=== PATIENT | male | born 1990 | race Caucasian/White ===

== ENCOUNTER 2016-08-30 07:04 | Emergency (ER) | payer BC ==
[~2016-08-30] VITALS: Ht 182.9 cm; Wt 167.0 kg
[~2016-08-30 07:04] MED LIST: ALBU1AER9 INH; CIPR-255 PO; OXYC-57 PO; TAMS0.4C38 PO
[2016-08-30 07:07] VITALS: TEMP 36.6; Ht 182.9 cm; Wt 167.0 kg
[2016-08-30] MEDS ORDERED: SODIUM CHLORIDE 0.9% 1000ML 1,000 ML IV STA (07:20)
[2016-08-30] MEDS ORDERED: ONDANSETRON INJ 2 MG/ML 2 ML VIAL IV STA (07:20)
[2016-08-30] MEDS ORDERED: MoRPHine SULFATE 10 MG/ML CARP/VIAL IV STA (07:20)
[2016-08-30 07:57] LABS: URINE APPEARANCE TURBID (CLEAR); URINE COLOR DK YELLOW; URINE EPITHELIAL CELL AUTO 0-5 /lpf (0-5); URINE NITRITE NEG (NEG); URINE PH 5.5 (4.5-7.5); URINE SPECIFIC GRAVITY 1.026 (1.000-1.030); UROBILINOGEN NEG (NEG)
[2016-08-30 07:58] LABS: MANUAL MICROSCOPIC REQUIRED? NO; REVIEW REQ? NO
[2016-08-30 07:59] LABS: URINE BILIRUBIN NEG (NEG)
[2016-08-30 08:00] LABS: BASO % 0.2 %; BASO ABS # 0.02 K/uL (0-0.2); COMPLETE YES; EOS % 1.8 %; HEMATOCRIT 46.1 % (42-52); IG% 0.4 %; LYMPH % 23.7 %; LYMPH ABS # 2.47 K/uL (1.2-3.4); MEAN CORPUSCULAR HEMOGLOBIN 30.2 pg (25-34); MEAN CORPUSCULAR HGB CONC 34.7 g/dl (32-36); MEAN PLATELET VOLUME 10.5 fL (7.4-10.4); MONO % 6.9 %; PLATELET COUNT 272 K/uL (130-400); WHITE BLOOD COUNT 10.42 K/uL (4.8-10.8)
[2016-08-30 08:18] LABS: BUN/CREATININE RATIO 9.1 (10-20); CALCIUM 8.5 mg/dl (8.5-10.1); CREATININE 1.2 mg/dl (0.60-1.40); POTASSIUM 3.5 mmol/L (3.5-5.1)
--- NOTE | 2016-08-30 08:19 | DIAGNOSTIC IMAGING REPORT ---
ABDOMEN AND PELVIS CT WITHOUT CONTRAST CT DOSE: 2086.83 mGy.cm HISTORY: EVALUATE FLANK PAIN/HEMATURIA TECHNIQUE: Multiaxial CT images of the abdomen and pelvis were performed without the use of intravenous and oral contrast according to the standard department stone protocol. COMPARISON STUDY: Renal ultrasound 08/22/2015. FINDINGS: The lung bases are clear. No pneumoperitoneum. No pneumatosis. No fractures within the visualized osseous structures. The unenhanced liver, spleen, gallbladder, pancreas, and adrenal glands are unremarkable. Bladder is decompressed. No renal stones identified. There is a duplicated left renal collecting system. Mild fullness within the upper pole without shelia hydronephrosis.. Questionable punctate density near the location where the proximal left ureters join on image 181 of [id number] which could represent a 2 mm stone and may account for the fullness within the upper pole. Suboptimal evaluation for bowel pathology due to the lack of intravenous and oral contrast. However, there is no definite bowel wall thickening or obstruction. A few sigmoid diverticula. Normal appendix. IMPRESSION: Possible punctate stone at the left ureteropelvic junction where the proximal left ureters join. This may account for the mild fullness within the upper pole of the left renal collecting system. Electronically signed by: Salvador Arias M.D. 08/30/2016 8:17 AM Dictated Date/Time: 08/30/2016 8:05 AM
[2016-08-30 08:34] VITALS: BP 130/65; PULSE 64; O2SAT 96
[2016-08-30] MEDS ORDERED: OXYC-57 PO (08:41)
--- NOTE | 2016-08-30 16:40 | EMERGENCY ROOM VISIT NOTE ---
ED Visit Note First contact with patient: 07:10 Chief Complaint: Left sided back pain. History of Present Illness: Mr. Ashraf is a 25 year-old white male who ambulates into the ED accompanied by female friend complaining of left sided lower back pain. Historically patient reports approximately one year ago he had a ureter calculus which required cystoscopy, laser lithotripsy, stone extraction and stent placement for a right sided calculus. He reports there is no postsurgical complications. Patient reports a acute onset of left lower back pain approximately 3-4 days ago. He reports this pain is similar to his previous right-sided ureter calculus. He reports initially the pain had been mild to moderate and then this morning approximately 3 hours ago the pain became severe. He describes the pain as a deep muscle discomfort. He rates his discomfort 9/10. His pain radiates around the abdomen and into the left lower quadrant and testicle. He has not identified any aggravating or alleviating factors related to the pain. He has not taken any medications for pain prior to arrival at the hospital. Associated with his pain he reports he has been having hematuria and nausea/ vomiting. Patient denies fevers, chills, sweats, skin eruptions, skin color changes, upper respiratory tract symptoms, shortness of breath, chest pain, diarrhea, constipation, rectal bleeding, black/tarry stools, urinary symptoms, hematuria. Review of Systems: As noted above in history of present illness. All body systems were reviewed and found to be negative as noted above. Past Medical History: As previously noted and hypertension, unspecified skin disorder and status post tonsillectomy. Current Medications: Patient denies. Allergies to Medications: Patient denies. Social History: Patient is currently employed; he feels safe in his home environment; he admits to tobacco use and denies alcohol use. Physical Examination: Vital Signs: Date Time Temp Pulse Resp B/P (MAP) Pulse Ox O2 Delivery O2 Flow Rate FiO2 08/30/16 08:34 64 18 130/65 96 Room Air 08/30/16 07:07 36.6 55 20 157/88 99 Room Air GENERAL: 25-year-old male in mild to moderate distress due to pain, nontoxic- appearing, afebrile and hemodynamically stable. NEUROLOGICAL: Awake, alert and oriented to person, place and time. Answering questions appropriately and following commands. Normal gait. Good hand eye coordination. SKIN: Warm, dry and pink. No soft tissue eruptions or trauma noted. HEENT: Atraumatic and normocephalic. PERRLA. Sclera white and conjunctiva pink. Oral cavity moist and pink. Pharynx is nonerythematous or edematous. Speech normal. No lymphadenopathy. Trachea midline. No jugular venous distention. BACK: No tenderness over the bony spine. No CVA tenderness. THORAX: Lungs sounds are clear to auscultation and equal bilaterally with symmetrical chest wall. No wheezing, rales or rhonchi. No crepitus, tenderness , subcutaneous air or deformities noted. HEART: Regular rate and rhythm. No gallops, rubs or murmurs are appreciated. ABDOMEN: Obese and soft with mild left lower quadrant abdominal pain. Positive bowel sounds in all quadrants. No guarding, rigidity or organomegaly. EXTREMITIES: Moves all extremities well on command and with purpose. All distal neurovascular statuses are intact and equal bilaterally. ED Course: Patient is assessed as noted above. Patient's medication list was reviewed. Laboratory Testing: Test 08/30/16 07:30 Range/Units White Blood Count 10.42 4.8-10.8 K/uL Red Blood Count 5.30 4.7-6.1 M/uL Hemoglobin 16.0 14.0-18.0 g/dL Hematocrit 46.1 42-52 % Mean Corpuscular Volume 87.0 80-100 fL Mean Corpuscular Hemoglobin 30.2 25-34 pg Mean Corpuscular Hemoglobin Concent 34.7 32-36 g/dl Platelet Count 272 130-400 K/uL Mean Platelet Volume 10.5 7.4-10.4 fL Neutrophils (%) (Auto) 67.0 % Lymphocytes (%) (Auto) 23.7 % Monocytes (%) (Auto) 6.9 % Eosinophils (%) (Auto) 1.8 % Basophils (%) (Auto) 0.2 % Neutrophils # (Auto) 6.98 1.4-6.5 K/uL Lymphocytes # (Auto) 2.47 1.2-3.4 K/uL Monocytes # (Auto) 0.72 0.11-0.59 K/uL Eosinophils # (Auto) 0.19 0-0.5 K/uL Basophils # (Auto) 0.02 0-0.2 K/uL RDW Standard Deviation 45.8 36.4-46.3 fL RDW Coefficient of Variation 14.4 11.5-14.5 % Immature Granulocyte % (Auto) 0.4 % Immature Granulocyte # (Auto) 0.04 0.00-0.02 K/uL Urine Color DK YELLOW Urine Appearance TURBID CLEAR Urine pH 5.5 4.5-7.[address] 1.026 1.000-1.030 Urine Protein TRACE NEG Urine Glucose (UA) NEG NEG Urine Ketones TRACE NEG Urine Occult Blood 3+ NEG Urine Nitrite NEG NEG Urine Bilirubin NEG NEG Urine Urobilinogen NEG NEG Urine Leukocyte Esterase TRACE NEG Urine WBC (Auto) 1-5 0-5 /hpf Urine RBC (Auto) >30 0-4 /hpf Urine Hyaline Casts (Auto) 1-5 0-5 /lpf Urine Epithelial Cells (Auto) 0-5 0-5 /lpf Urine Bacteria (Auto) NEG NEG Sodium Level 141 136-145 mmol/L Potassium Level 3.5 3.5-5.1 mmol/L Chloride Level 110 98-107 mmol/L Carbon Dioxide Level 21 21-32 mmol/L Anion Gap 10.0 3-11 mmol/L Blood Urea Nitrogen 11 7-18 mg/dl Creatinine 1.20 0.60-1.40 mg/dl Est Creatinine Clear Calc Drug Dose 149.6 ml/min Estimated GFR () 96.1 Estimated GFR (Non- 83.0 BUN/Creatinine Ratio 9.1 10-20 Random Glucose 100 70-99 mg/dl Calcium Level 8.5 8.5-10.1 mg/dl Total Bilirubin 0.4 0.2-1 mg/dl Direct Bilirubin 0.1 0-0.2 mg/dl Aspartate Amino Transf (AST/SGOT) 12 15-37 U/L Alanine Aminotransferase (ALT/SGPT) 29 12-78 U/L Alkaline Phosphatase 81 45-117 U/L Total Protein 7.5 6.4-8.2 gm/dl Albumin 3.8 3.4-5.0 gm/dl Lipase 79 73-393 U/L Noncontrast Abdominal/Pelvic CT: Was reviewed by myself and read by the radiologist showing a possible punctate calculus at the left UPJ where the proximal left ureters join and I mild fullness within the upper pole of the left renal collection system Patient was hydrated with normal saline and he initially received 6 mg of morphine IV and 4 mg of Zofran IV. Patient was reassessed multiple times during his stay in the emergency department. Patient's case was reviewed with Dr. Tinsley; we agreed on diagnostic approach, treatment, disposition and plan. Patient was educated about today's findings and instructed on his treatment plan ; he verbalizes understanding and agreement with this plan. Clinical Impression: Left ureter calculus. Decision-Making: Initially my differential diagnosis I considered ureter calculus, pyelonephritis, musculoskeletal injury, diverticulitis, bowel obstruction and other causes. Disposition: Patient discharged home in stable condition accompanied by his girlfriend; prior to departure he was reassessed and subjectively reported he was pain and symptom-free. Plan: Use 600 mg of ibuprofen every 6 hours as needed for pain; take with food and stop for stomach pain or indigestion. 3 hours after ibuprofen use rate your pain: for pain rated 1-5 use 650 mg of acetaminophen for pain rated 6-10 use one Percocet tablet Stay well-hydrated with increased clear fluids. Strain all urine and collect all stones for analysis. Follow-up with your urologist, Dr. Cleveland, for specialty care and treatment. Return to the ED for worsening/uncontrolled pains, fevers, worsening nausea/ vomiting, urinary burning or any new/concerning symptoms.
[2016-09-08] MEDS ORDERED: ONDA4TAB10 SL (18:14)
== END 2016-08-30 08:53 | disposition home or self-care (01) ==
LOC: C.EDB 07:05
DX: N20.1 Calculus of ureter (principal); I10 Essential (primary) hypertension; Z72.0 Tobacco use

== ENCOUNTER 2016-09-06 17:07 | Inpatient (IN) | payer BC ==
[~2016-09-06] VITALS: Ht 182.9 cm; Wt 166.6 kg
[~2016-09-06 17:07] MED LIST changes: -ALBU1AER9 INH; -CIPR-255 PO; -TAMS0.4C38 PO
[2016-09-06] MEDS ORDERED: SODIUM CHLORIDE 0.9% 1000ML 1,000 ML IV STA (17:16)
[2016-09-06 17:42] LABS: URINE APPEARANCE CLEAR (CLEAR); URINE BILIRUBIN NEG (NEG); URINE COLOR YELLOW; URINE NITRITE NEG (NEG); URINE PH >= 9.0 (4.5-7.5); URINE SPECIFIC GRAVITY 1.019 (1.000-1.030); UROBILINOGEN NEG (NEG); ZZUR CULT IF INDIC CLEAN CATCH NO
[2016-09-06 17:44] LABS: BASO % 0.1 %; BASO ABS # 0.01 K/uL (0-0.2); COMPLETE YES; EOS % 0.2 %; HEMATOCRIT 43.3 % (42-52); IG% 0.2 %; LYMPH % 16.6 %; LYMPH ABS # 2.03 K/uL (1.2-3.4); MEAN CELL VOLUME 86.8 fL (80-100); MEAN CORPUSCULAR HEMOGLOBIN 30.3 pg (25-34); MEAN CORPUSCULAR HGB CONC 34.9 g/dl (32-36); MEAN PLATELET VOLUME 10.1 fL (7.4-10.4); MONO % 6.2 %; NEUT % 76.7 %; PLATELET COUNT 234 K/uL (130-400); RED BLOOD COUNT 4.99 M/uL (4.7-6.1); WHITE BLOOD COUNT 12.24 K/uL (4.8-10.8)
[2016-09-06 17:45] LABS: MANUAL MICROSCOPIC REQUIRED? NO; REVIEW REQ? NO; SULFASALICYLIC ACID NEG (NEG)
[2016-09-06] MEDS ORDERED: TAMS0.4C38 PO (17:46)
[2016-09-06] MEDS ORDERED: ABL/15 PO (17:46)
[2016-09-06] MEDS ORDERED: VNTHFA/IN INH (17:48)
[2016-09-06] MEDS ORDERED: MoRPHine SULFATE 4 MG/ML 1 ML CARP\\VIAL IV STA (17:49)
[2016-09-06] MEDS ORDERED: ONDANSETRON INJ 2 MG/ML 2 ML VIAL IV STA (17:49)
[2016-09-06 18:09] LABS: BUN/CREATININE RATIO 10.5 (10-20); CALCIUM 9.1 mg/dl (8.5-10.1); CREATININE 1.1 mg/dl (0.60-1.40); POTASSIUM 3.4 mmol/L (3.5-5.1)
--- NOTE | 2016-09-06 18:28 | DIAGNOSTIC IMAGING REPORT ---
Renal ultrasound RETROPERITONEAL COMPLETE CLINICAL HISTORY: Left flank pain, decreased urine output. Flank pain TECHNIQUE: Ultrasound COMPARISON STUDY: None FINDINGS: Right kidney measures 11.1 cm. Left measures 12.8 cm. Echogenicity is unremarkable. No evidence for hydronephrosis. IMPRESSION: Normal study. No evidence for hydronephrosis. Electronically signed by: Wade Hathaway M.D. 09/06/2016 6:27 PM Dictated Date/Time: 09/06/2016 6:26 PM
[2016-09-06] MEDS ORDERED: ACETAMINOPHEN 325 MG TAB PO PRN (19:45)
[2016-09-06] MEDS ORDERED: ALUMINUM/MAGNESIUM/SIMETH (MAALOX MAX) 30 ML UDC PO PRN (19:45)
[2016-09-06] MEDS ORDERED: ONDANSETRON INJ 2 MG/ML 2 ML VIAL IV PRN (19:45)
[2016-09-06] MEDS ORDERED: POLYETHYLENE (MIRALAX) 17 GM PACK PO PRN (19:45)
[2016-09-06] MEDS ORDERED: MAGNESIUM HYDROXIDE SUSP 30 ML UDC PO PRN (19:45)
--- NOTE | 2016-09-06 19:57 | History and Physical ---
History & Physical Date & Time of Service: Sep 06, 2016 at 19:56 Chief Complaint: Kidney Stone Primary Care Physician: Juaquin Souza History of Present Illness Source: patient 25 y/o M Hx obstructive renal calculi and previous ureteral stent placement. Pt presented with back/flank pain on 08/[address] abdomen which showed a punctate stone at the left ureteropelvic junction. It was thought that this would pass and he was discharged to follow-up with his urologist. His symptoms have persisted, worsened over the course of the day and were accompanied by nausea and vomiting. He denies fevers or rigors. Past Medical/Surgical History 1) Obstructive ureteral calculus requiring stent placement 08/28 2) Obesity Family History Cancer Father with DM , CAD/OH - mother denies medical issues Social History Smoking Status: Current Every Day Smoker Marital Status: single Housing status: lives alone Occupational Status: employed Allergies Coded Allergies: No Known Allergies (Unverified , 09/06/16) Home Medications Scheduled Aripiprazole (Abilify), 1 TAB PO DAILY Tamsulosin Hcl (Flomax), 1 CAP PO DAILY Scheduled PRN Albuterol Hfa (Ventolin Hfa), 2-4 PUFFS INH Q6H PRN for SOB/Wheezing Oxycodone/Acetaminophen 5MG/325MG (Percocet 5MG/325MG), 1 TAB PO Q6H PRN for Pain Review of Systems Constitutional: No fever, No chills, No sweats Eyes: No worsening of vision, No eye pain ENT: No hearing loss, No unusual epistaxis, No nasal symptoms Respiratory: No cough, No sputum, No wheezing Cardiovascular: No chest pain, No orthopnea, No PND Abdomen: + pain, + nausea, + vomiting Musculoskeletal: + problem reported, No joint pain Genitourinary - Male: No hematuria, No dysuria Neurologic: No memory loss, No paralysis Psychiatric: No depression symptoms Endocrine: No fatigue Hematologic / Lymphatic: No abnormal bleeding/bruising Integumentary: No rash Allergic / Immunologic: No environmental allergies Physical Exam Vital Signs Date Time Temp Pulse Resp B/P (MAP) Pulse Ox O2 Delivery O2 Flow Rate FiO2 09/06/16 17:08 36.8 94 18 174/85 97 Room Air General Appearance: WD/WN, no apparent distress, + pertinent finding (Pleasant overweight kiya male - enjoying a ham sandwich - no distress) Head: normocephalic Eyes: normal inspection ENT: normal ENT inspection Neck: supple, no JVD Respiratory/Chest: chest non-tender, lungs clear, normal breath sounds Cardiovascular: regular rate, rhythm, no edema, no gallop Abdomen/GI: normal bowel sounds, soft, + pertinent finding (L lower tenderness) Back: normal inspection Extremities/Musculoskelatal: normal inspection, no calf tenderness, normal capillary refill, no pedal edema, normal range of motion 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, no motor/sensory deficits, alert, normal mood/affect, normal reflexes, oriented x 3 Skin: normal color, warm/dry Diagnostics Laboratory Results Results Past 24 Hours Test 09/06/16 17:25 09/06/16 17:30 Range/Units Urine Color YELLOW Urine Appearance CLEAR CLEAR Urine pH >= 9.0 4.5-7.5 Urine Specific [place] 1.019 1.000-1.030 Urine Protein NEG NEG Urine Glucose (UA) NEG NEG Urine Ketones 1+ NEG Urine Occult Blood TRACE NEG Urine Nitrite NEG NEG Urine Bilirubin NEG NEG Urine Urobilinogen NEG NEG Urine Leukocyte Esterase NEG NEG Urine WBC (Auto) 1-5 0-5 /hpf Urine RBC (Auto) 5-10 0-4 /hpf Urine Hyaline Casts (Auto) 1-5 0-5 /lpf Urine Epithelial Cells (Auto) 5-10 0-5 /lpf Urine Bacteria (Auto) NEG NEG White Blood Count 12.24 4.8-10.8 K/uL Red Blood Count 4.99 4.7-6.1 M/uL Hemoglobin 15.1 14.0-18.0 g/dL Hematocrit 43.3 42-52 % Mean Corpuscular Volume 86.8 80-100 fL Mean Corpuscular Hemoglobin 30.3 25-34 pg Mean Corpuscular Hemoglobin Concent 34.9 32-36 g/dl Platelet Count 234 130-400 K/uL Mean Platelet Volume 10.1 7.4-10.4 fL Neutrophils (%) (Auto) 76.7 % Lymphocytes (%) (Auto) 16.6 % Monocytes (%) (Auto) 6.2 % Eosinophils (%) (Auto) 0.2 % Basophils (%) (Auto) 0.1 % Neutrophils # (Auto) 9.39 1.4-6.5 K/uL Lymphocytes # (Auto) 2.03 1.2-3.4 K/uL Monocytes # (Auto) 0.76 0.11-0.59 K/uL Eosinophils # (Auto) 0.03 0-0.5 K/uL Basophils # (Auto) 0.01 0-0.2 K/uL RDW Standard Deviation 46.1 36.4-46.3 fL RDW Coefficient of Variation 14.6 11.5-14.5 % Immature Granulocyte % (Auto) 0.2 % Immature Granulocyte # (Auto) 0.02 0.00-0.02 K/uL Sodium Level 144 136-145 mmol/L Potassium Level 3.4 3.5-5.1 mmol/L Chloride Level 110 98-107 mmol/L Carbon Dioxide Level 23 21-32 mmol/L Anion Gap 11.0 3-11 mmol/L Blood Urea Nitrogen 12 7-18 mg/dl Creatinine 1.10 0.60-1.40 mg/dl Est Creatinine Clear Calc Drug Dose 163.0 ml/min Estimated GFR () 106.8 Estimated GFR (Non- 92.2 BUN/Creatinine Ratio 10.5 10-20 Random Glucose 100 70-99 mg/dl Calcium Level 9.1 8.5-10.1 mg/dl Chemistry Specimen Hemolysis Diagnostic Radiology CT abdomen 08/30 Possible punctate stone at the left ureteropelvic junction where the proximal left ureters join. This may account for the mild fullness within the upper pole of the left renal collecting system. US 09/06 No abnormalities noted Impression Assessment and Plan 25 y/o M Hx obstructive renal calculi and previous ureteral stent placement. Pt presented with back/flank pain on 08/[address] abdomen which showed a punctate stone at the left ureteropelvic junction. It was thought that this would pass and he was discharged to follow-up with his Urologist. His symptoms have persisted, worsened over the course of the day and were accompanied by nausea and vomiting. He denies fevers or rigors. Pt is admitted with presumed retained L calculus. Although this is not seen on US it may be that the size of the stone and pts habitus may limit the diagnostic value of this modality. Due to his age and previous CTs, we will defer to the Urology service in regards to a repeat. It is clear that his symptoms have persisted in the same manner. We will place the pt on antiemetics and narcotics as needed, IVF and keep him NPO after midnight pending Urology evaluation. He does not currently have evidence of active infection. He is advised on smoking cessation and may benefit from nutritional counseling prior to departure. Full code - SCDs Total time for this admit including review of labs, meds, records - discussion with pt and ER attending - 33 min Level of Care Med/Surg Resuscitation Status FULL RESUSCITATION VTE Prophylaxis VTE Risk Assessment Done? Y/N: Yes Risk Level: Low Given or contraindicated: SCD's
[2016-09-06] MEDS ORDERED: KETOROLAC TROMETHAMINE 30 MG/ML VIAL IV PRN (20:00)
--- NOTE | 2016-09-06 20:20 | EMERGENCY ROOM VISIT NOTE ---
History First contact with patient: 17:12 Chief Complaint: KIDNEY STONE Stated Complaint: KIDNEY STONE History of Present Illness The patient is a 25 year old male who presents to the Emergency Room via private vehicle with complaints of "kidney stone ankle. The patient states that he was seen here approximately 1 week ago with a left sided kidney stone. He states that he has a history of kidney stones. He states that he followed up with Dr. Cleveland of urology this past Wednesday, and was instructed that if his pain became intolerable he was to go the emergency department for potential subsequent surgical intervention, or follow-up in 2 weeks. The patient states at this time the pain is very annoying and he would like to deal with the potential surgical intervention. He rates his pain currently as a 0/10, but notes that in waves his pain will be a 6-7/10. He also notes decreased urinary output. He states his pain at this time is identical to when he presented with previously and was diagnosed with a kidney stone. Review of Systems A complete 10-point Review of Systems was discussed with the patient, with pertinent positives and negatives listed in the History of Present Illness. All remaining Review of Systems questions can be considered negative unless otherwise specified. Past Medical/Surgical History Medical Problems: (1) Hydronephrosis with obstructing calculus Family History Cancer Social History Smoking Status: Current Every Day Smoker Alcohol Use: occasionally Marital Status: single Occupation Status: employed Current/Historical Medications Scheduled Aripiprazole (Abilify), 1 TAB PO DAILY Tamsulosin Hcl (Flomax), 1 CAP PO DAILY Scheduled PRN Albuterol Hfa (Ventolin Hfa), 2-4 PUFFS INH Q6H PRN for SOB/Wheezing Oxycodone/Acetaminophen 5MG/325MG (Percocet 5MG/325MG), 1 TAB PO Q6H PRN for Pain Allergies Coded Allergies: No Known Allergies (Unverified , 09/06/16) Physical Exam Vital Signs Date Time Temp Pulse Resp B/P (MAP) Pulse Ox O2 Delivery O2 Flow Rate FiO2 09/06/16 17:08 36.8 94 18 174/85 97 Room Air Physical Exam VITAL SIGNS - Vital signs and nursing notes were reviewed. Afebrile, hypertensive 174/85, non-tachycardic and is saturating well on room air 97%. GENERAL -[id number] male appearing his stated age who is in no acute distress. Communicates well with provider and answers questions appropriately. SKIN - Without rashes. Skin is unremarkable. HEAD - NC/AT. LUNGS - Chest wall symmetric without accessory muscle use, intercostals retractions, or central cyanosis. Normal vesicular breath sounds CTA B/L. No wheezes, rales, or rhonchi appreciated. CARDIAC - RRR with S1/S2. No murmur, rubs, or gallops appreciated. ABDOMEN - Abdominal contour without pulsations or visible masses. BS normoactive all four quadrants. No tenderness, palpable masses, hepatosplenomegaly, or ascites noted. MUSCULOSKELETAL: There is positive CVA tenderness on the left. None on the right. Medical Decision & Procedures ER Provider Diagnostic Interpretation: Renal ultrasound RETROPERITONEAL COMPLETE CLINICAL HISTORY: Left flank pain, decreased urine output. Flank pain TECHNIQUE: Ultrasound COMPARISON STUDY: None FINDINGS: Right kidney measures 11.1 cm. Left measures 12.8 cm. Echogenicity is unremarkable. No evidence for hydronephrosis. IMPRESSION: Normal study. No evidence for hydronephrosis. Electronically signed by: Wade Hathaway M.D. 09/06/2016 6:27 PM Dictated Date/Time: 09/06/2016 6:26 PM Laboratory Results 09/06/16 17:30 Red Blood Count 4.99, Mean Corpuscular Volume 86.8, Mean Corpuscular Hemoglobin 30.3, Mean Corpuscular Hemoglobin Concent 34.9, Mean Platelet Volume 10.1, Neutrophils (%) (Auto) 76.7, Lymphocytes (%) (Auto) 16.6, Monocytes (%) (Auto) 6.2, Eosinophils (%) (Auto) 0.2, Basophils (%) (Auto) 0.1, Neutrophils # (Auto) 9.39, Lymphocytes # (Auto) 2.03, Monocytes # (Auto) 0.76, Eosinophils # (Auto) 0.03, Basophils # (Auto) 0.01 09/06/16 17:30 Test 09/06/16 17:25 09/06/16 17:30 Urine Color YELLOW Urine Appearance CLEAR (CLEAR) Urine pH >= 9.0 (4.5-7.5) Urine Specific [place] 1.019 (1.000-1.030) Urine Protein NEG (NEG) Urine Glucose (UA) NEG (NEG) Urine Ketones 1+ (NEG) Urine Occult Blood TRACE (NEG) Urine Nitrite NEG (NEG) Urine Bilirubin NEG (NEG) Urine Urobilinogen NEG (NEG) Urine Leukocyte Esterase NEG (NEG) Urine WBC (Auto) 1-5 /hpf (0-5) Urine RBC (Auto) 5-10 /hpf (0-4) Urine Hyaline Casts (Auto) 1-5 /lpf (0-5) Urine Epithelial Cells (Auto) 5-10 /lpf (0-5) Urine Bacteria (Auto) NEG (NEG) White Blood Count 12.24 K/uL (4.8-10.8) Red Blood Count 4.99 M/uL (4.7-6.1) Hemoglobin 15.1 g/dL (14.0-18.0) Hematocrit 43.3 % (42-52) Mean Corpuscular Volume 86.8 fL (80-100) Mean Corpuscular Hemoglobin 30.3 pg (25-34) Mean Corpuscular Hemoglobin Concent 34.9 g/dl (32-36) Platelet Count 234 K/uL (130-400) Mean Platelet Volume 10.1 fL (7.4-10.4) Neutrophils (%) (Auto) 76.7 % Lymphocytes (%) (Auto) 16.6 % Monocytes (%) (Auto) 6.2 % Eosinophils (%) (Auto) 0.2 % Basophils (%) (Auto) 0.1 % Neutrophils # (Auto) 9.39 K/uL (1.4-6.5) Lymphocytes # (Auto) 2.03 K/uL (1.2-3.4) Monocytes # (Auto) 0.76 K/uL (0.11-0.59) Eosinophils # (Auto) 0.03 K/uL (0-0.5) Basophils # (Auto) 0.01 K/uL (0-0.2) RDW Standard Deviation 46.1 fL (36.4-46.3) RDW Coefficient of Variation 14.6 % (11.5-14.5) Immature Granulocyte % (Auto) 0.2 % Immature Granulocyte # (Auto) 0.02 K/uL (0.00-0.02) Anion Gap 11.0 mmol/L (3-11) Est Creatinine Clear Calc Drug Dose 163.0 ml/min Estimated GFR () 106.8 Estimated GFR (Non- 92.2 BUN/Creatinine Ratio 10.5 (10-20) Calcium Level 9.1 mg/dl (8.5-10.1) Chemistry Specimen Hemolysis Medications Administered Medications (Trade) Dose Ordered Sig/Rimma Route Start Time Stop Time Status Last Admin Dose Admin Sodium Chloride 1,000 ml @ 999 mls/hr Q1H1M STAT IV 09/06/16 17:16 09/06/16 18:16 DC 09/06/16 17:16 999 MLS/HR Morphine Sulfate (MoRPHine SULFATE INJ) 4 mg NOW STAT IV 09/06/16 17:49 09/06/16 17:50 DC 09/06/16 17:49 4 MG Ondansetron HCl (Zofran Inj) 4 mg NOW STAT IV 09/06/16 17:49 09/06/16 17:50 DC 09/06/16 17:49 4 MG Zolpidem Tartrate (Ambien Tab) 5 mg HSZ PRN PO 09/06/16 19:45 10/06/16 19:44 09/06/16 22:31 5 MG Medical Decision Patient was seen and evaluated as above. After obtaining a thorough history and physical examination IV access was initiated the workup was performed. Extensive review was taken place of the previous visits. He presents to us with a kidney stone most likely is experiencing such today. Ultrasound does not reveal any stone or hydronephrosis, however clinical correlation indicates he likely still has a retained stone. CBC revealed slight leukocytosis at 12.24 , this is increased from previous. No anemia noted. PRP reveals potassium slightly low at 3.4, chloride high at 110, glucose 100. Creatinine is elevated at 1.1 which is stable from previous. He was instructed to follow-up regarding his creatinine, however this pump could be secondary to obstruction. Urine is positive for high pH, 1+ ketones, trace occult blood, 5-10 red blood cells, and 5-10 epithelial cells. No bacteria to indicate infection. At this time the patient will be given Zofran and morphine for his pain. I do believe that inpatient management is warranted for his pain and subsequently further intervention via surgical management. The patient case was discussed with my attending, and subsequent the hospitalist. Patient will be admitted for further evaluation and management. Please refer to further dictation regarding the patient's stay. In evaluation treatment this patient following differential diagnoses were entertained: Renal calculi, pyelonephritis, among others. Impression Primary Impression: Left flank pain Additional Impressions: Intractable pain Kidney stone Hypokalemia Departure Information Dispostion Admitted as an inpatient Condition GOOD Referrals Juaquin Souza (PCP) Patient Instructions My [facility] Problem Qualifiers
[2016-09-06 20:55] VITALS: BP 158/84; PULSE 77; TEMP 36.9; O2SAT 97; Ht 182.9 cm; Wt 166.6 kg
[2016-09-06] MEDS: HYDROmorphone INJ 0.5 MG/0.5 ML SYR IV PRN (21:08)
[2016-09-06] MEDS ORDERED: PNEUMOCOCCAL ADMINISTRATION CHARGE ONE (21:15)
[2016-09-06] MEDS ORDERED: PNEUMOCOCCAL POLYSACCHARIDES 25 MCG/0.5 ML VIAL/SYR IM. ONE (21:15)
[2016-09-06] MEDS: D5NSS + 20MEQ KCL 1,000 ML IV SCH (21:25)
[2016-09-06] MEDS: ZOLPIDEM TARTRATE 5 MG TAB PO PRN (22:31)
[2016-09-06 23:15] VITALS: BP 144/78; PULSE 60; TEMP 37; O2SAT 95
[2016-09-07] MEDS: D5NSS + 20MEQ KCL 1,000 ML IV SCH (03:44)
[2016-09-07] MEDS ORDERED: CIPROFLOXACIN 400MG / D5W IV SCH (06:00)
[2016-09-07] MEDS: HYDROmorphone INJ 0.5 MG/0.5 ML SYR IV PRN ×4 (06:33→23:28)
[2016-09-07 06:51] VITALS: BP 133/75; PULSE 66; TEMP 36.7; O2SAT 93
[2016-09-07] MEDS ORDERED: PHENAZOPYRIDINE HCL 200 MG TAB PO PRN (08:30)
--- NOTE | 2016-09-07 08:45 | Urology Consultation ---
History General Date of Service: Sep 07, 2016. Chief Complaint: left ureteral stone Primary Care Physician: Juaquin Souza Pt seen a urologist before?: Yes (Dr. Cleveland) If yes, why?: nephrolithiais History of Present Illness 25 yo male admitted for left renal colic. 2mm left UPJ stone noted on CT from last week. He did see Dr. Cleveland for this issue last week. Trial of passage with MET attempted. The pt reports his pain became worse over the weekend, and was accompanied by dysuria, hematuria, and n/v. Denies f/c. He reports he came to [facility] for pain control and hopeful for URS/LL. His pain is 0/10 this morning. Hematuria has resolved. Nausea and dysuria persists. He has a hx of nephrolithiasis and URS/LL last summer. Imaging Imaging: CT, Ultrasound Laboratory Last 24 Hours Test 09/06/16 17:25 09/06/16 17:30 Urine Color YELLOW Urine Appearance CLEAR Urine pH >= 9.0 Urine Specific [place] 1.019 Urine Protein NEG Urine Glucose (UA) NEG Urine Ketones 1+ Urine Occult Blood TRACE Urine Nitrite NEG Urine Bilirubin NEG Urine Urobilinogen NEG Urine Leukocyte Esterase NEG Urine WBC (Auto) 1-5 /hpf Urine RBC (Auto) 5-10 /hpf Urine Hyaline Casts (Auto) 1-5 /lpf Urine Epithelial Cells (Auto) 5-10 /lpf Urine Bacteria (Auto) NEG White Blood Count 12.24 K/uL Red Blood Count 4.99 M/uL Hemoglobin 15.1 g/dL Hematocrit 43.3 % Mean Corpuscular Volume 86.8 fL Mean Corpuscular Hemoglobin 30.3 pg Mean Corpuscular Hemoglobin Concent 34.9 g/dl Platelet Count 234 K/uL Mean Platelet Volume 10.1 fL Neutrophils (%) (Auto) 76.7 % Lymphocytes (%) (Auto) 16.6 % Monocytes (%) (Auto) 6.2 % Eosinophils (%) (Auto) 0.2 % Basophils (%) (Auto) 0.1 % Neutrophils # (Auto) 9.39 K/uL Lymphocytes # (Auto) 2.03 K/uL Monocytes # (Auto) 0.76 K/uL Eosinophils # (Auto) 0.03 K/uL Basophils # (Auto) 0.01 K/uL RDW Standard Deviation 46.1 fL RDW Coefficient of Variation 14.6 % Immature Granulocyte % (Auto) 0.2 % Immature Granulocyte # (Auto) 0.02 K/uL Sodium Level 144 mmol/L Potassium Level 3.4 mmol/L Chloride Level 110 mmol/L Carbon Dioxide Level 23 mmol/L Anion Gap 11.0 mmol/L Blood Urea Nitrogen 12 mg/dl Creatinine 1.10 mg/dl Est Creatinine Clear Calc Drug Dose 163.0 ml/min Estimated GFR () 106.8 Estimated GFR (Non- 92.2 BUN/Creatinine Ratio 10.5 Random Glucose 100 mg/dl Calcium Level 9.1 mg/dl Chemistry Specimen Hemolysis Problem List Medical Problems: (1) Left ureteral calculus Status: Acute Past History bipolar disorder, kidney stones, other (obesity) Past Surgical History: lithotripsy, ureteral stent Family History Cancer DM, CAD, [place] Social History Hx Tobacco Use In Past Year?: Yes (1/2 PPD, 10 YEARS) Smoking: other (current every day smoker) Marital status: single Housing status: lives alone Occupation status: employed Allergies Coded Allergies: No Known Allergies (Unverified , 09/06/16) Medications Home Medications: Home Meds and Scripts Medications Dose Route/Sig Max Daily Dose Days Date Category Dose Instructions Ventolin Hfa (Albuterol) 200 Puffs/01873 Mcg Aers 2-4 Puffs INH Q6H PRN 09/06/16 Reported Abilify (Aripiprazole) 15 Mg Tab 1 Tab PO DAILY 30 09/06/16 Reported Flomax (Tamsulosin Hcl) 0.4 Mg Cap 1 Cap PO DAILY 30 09/06/16 Reported Percocet 5MG/325MG (Oxycodone/Acetaminophen) Tab 1 Tab PO Q6H PRN 08/30/16 Rx For Initial Treatment Inpatient Medications: Current Inpatient Medications Medications (Trade) Dose Ordered Sig/Rimma Route Start Time Stop Time Status Last Admin Dose Admin Acetaminophen (Tylenol Tab) 650 mg Q4H PRN PO 09/06/16 19:45 10/06/16 19:44 Al Hydrox/Mg Hydrox/Simethicone (Maalox Max Susp) 15 ml Q4H PRN PO 09/06/16 19:45 10/06/16 19:44 Magnesium Hydroxide (Milk Of Magnesia Susp) 30 ml Q6H PRN PO 09/06/16 19:45 10/06/16 19:44 Polyethylene (Miralax Powder Packet) 17 gm DAILY PRN PO 09/06/16 19:45 10/06/16 19:44 Zolpidem Tartrate (Ambien Tab) 5 mg HSZ PRN PO 09/06/16 19:45 10/06/16 19:44 09/06/16 22:31 5 MG Ondansetron HCl (Zofran Inj) 4 mg Q6H PRN IV 09/06/16 19:45 10/06/16 19:44 Hydromorphone HCl (Dilaudid Inj) 0.5 mg Q3H PRN IV 09/06/16 20:00 09/20/16 19:59 09/07/16 06:33 0.5 MG Ketorolac Tromethamine (Toradol Inj) 30 mg Q6H PRN IV 09/06/16 20:00 09/07/16 20:00 09/06/16 21:08 30 MG Potassium Chloride/Dextrose/ Sod Cl 1,000 ml @ 150 mls/hr Q6H40M IV 09/06/16 21:00 09/07/16 10:19 09/07/16 03:44 150 MLS/HR Tamsulosin HCl (Flomax Cap) 0.4 mg HS PO 09/07/16 21:00 10/07/16 20:59 UNV Tamsulosin HCl (Flomax Cap) 0.4 mg 0830 ONCE PO 09/07/16 08:30 09/07/16 08:31 UNV Phenazopyridine HCl (Pyridium Tab) 200 mg TID PRN PO 09/07/16 08:30 10/07/16 08:29 UNV Review of Systems Review of Systems Constitutional: No fever, No chills Eyes: No double vision Neurological: No dizzy Endocrine: No excessive thirst Gastrointestinal: No abdominal pain, No nausea, No vomiting Cardiovascular: No chest pain Respiratory: No shortness of breath Skin: No rash Musculoskeletal: No back pain Psychologic / Mental: + nervous, + difficulty sleeping, + problem reported ( anxiety) Male : + painful urination, + kidney stones, No blood in urine Physical Exam Vital Signs: Vital Signs Past 12 Hours Date Time Temp Pulse Resp B/P (MAP) Pulse Ox O2 Delivery O2 Flow Rate FiO2 09/07/16 07:20 Room Air 09/07/16 06:51 36.7 66 19 133/75 (94) 93 Room Air 09/07/16 00:45 Room Air 09/06/16 23:15 37.0 60 16 144/78 (100) 95 Room Air 09/06/16 20:55 36.9 77 20 158/84 97 Room Air Physical Exam: General Appearance: no apparent distress, + obese Eyes: bilateral eyes normal inspection ENT: hearing grossly normal Neck: no JVD Respiratory/Chest: no respiratory distress, no accessory muscle use Cardiovascular: no JVD Extremities: normal inspection Neurologic/Psychiatric: alert, normal mood/affect, oriented x 3 Skin: normal color Assessment & Plan Assessment & Plan Treatment Planned: ureteroscopy w/ laser, cystoscopy w/ stent A/P: 2mm left UPJ stone AFVSS. Tx options discussed with the pt today have included a trial of passage with MET vs left URS/LL tomorrow. The pt prefers left ureteral stent placement and possible left ureteroscopy and laser lithotripsy. Risks and benefits discussed. All questions answered. Consent obtained. Will plan for procedure tomorrow with Dr. Cleveland. The pt may eat today. NPO after midnight. Will start him on Flomax. Pyridium for dysuria. Strain all urine. Encourage fluids. Will send a UC&S. Will check labs and a KUB in the AM. The pt is highly anxious about remaining overnight in the hospital. I have recommended that he remain inpatient overnight if his pain was severe enough to bring him into the hospital. Will defer management of anxiety/bipolar disorder/ sleep disorder to primary service. ? may need to consult psych for assistance with his ongoing mental health issues. The pt should likely be able to be discharged home tomorrow after stent placement. Thanks for the consult. Will continue to follow along with primary service.
[2016-09-07] MEDS ORDERED: TAMSULOSIN HCL 0.4 MG CAP PO ONE (09:00)
[2016-09-07] MEDS ORDERED: ARIPIprazole TAB 15 MG TAB PO ONE (10:00)
[2016-09-07] MEDS ORDERED: NICOTINE 21 MG/24 HR TDSY TD ONE (10:00)
--- NOTE | 2016-09-07 11:06 | Anesthesiology Progress Note ---
Anesthesia Progress Note Date of Service Sep 07, 2016. Progress Notes Pt seen and consented for cystoscopy, laser litho, stent placement on 09/08/16. Pre-op evaluation completed. Pt stated he had complications with asthma during last procedure on 09/01/25. Record printed - noted bronchospasm following ETT placement. Pt still smokes. GA discussed with patient and consent obtained. Case /eval discussed with Dr. Stanley.
--- NOTE | 2016-09-07 11:39 | Progress Note ---
Subjective Date of Service: Sep 07, 2016. Subjective Pt evaluation today including: conversation w/ patient, physical exam, chart review, lab review, review of studies, review of inpatient medication list generally feeling better - still with flank pain but more off and on - severe for a few minutes then fades to an ache then sometimes gone before coming back again - definitely far better than it was. no f/c/s. no dysuria. doesn't feel he's passed stone yet either, however. doing better sicne able to eat and since getting nicotine patch, but doesn't really want to have to stay in hospital. ROS otherwise negative except for as above Problem List Medical Problems: (1) Left ureteral calculus Status: Acute Objective Vital Signs Date Time Temp Pulse Resp B/P (MAP) Pulse Ox O2 Delivery O2 Flow Rate FiO2 09/07/16 07:20 Room Air 09/07/16 06:51 36.7 66 19 133/75 (94) 93 Room Air 09/07/16 00:45 Room Air 09/06/16 23:15 37.0 60 16 144/78 (100) 95 Room Air 09/06/16 20:55 36.9 77 20 158/84 97 Room Air 09/06/16 20:19 159/62 09/06/16 17:08 36.8 94 18 174/85 97 Room Air Physical Exam General Appearance: no apparent distress Eyes: EOMI ENT: hearing grossly normal Neck: trachea midline Respiratory/Chest: no respiratory distress, no accessory muscle use Extremities: normal range of motion 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, alert, normal mood/affect Skin: normal color, warm/dry Laboratory Results Last 24 Hours Test 09/06/16 17:25 09/06/16 17:30 Urine Color YELLOW Urine Appearance CLEAR Urine pH >= 9.0 Urine Specific [place] 1.019 Urine Protein NEG Urine Glucose (UA) NEG Urine Ketones 1+ Urine Occult Blood TRACE Urine Nitrite NEG Urine Bilirubin NEG Urine Urobilinogen NEG Urine Leukocyte Esterase NEG Urine WBC (Auto) 1-5 /hpf Urine RBC (Auto) 5-10 /hpf Urine Hyaline Casts (Auto) 1-5 /lpf Urine Epithelial Cells (Auto) 5-10 /lpf Urine Bacteria (Auto) NEG White Blood Count 12.24 K/uL Red Blood Count 4.99 M/uL Hemoglobin 15.1 g/dL Hematocrit 43.3 % Mean Corpuscular Volume 86.8 fL Mean Corpuscular Hemoglobin 30.3 pg Mean Corpuscular Hemoglobin Concent 34.9 g/dl Platelet Count 234 K/uL Mean Platelet Volume 10.1 fL Neutrophils (%) (Auto) 76.7 % Lymphocytes (%) (Auto) 16.6 % Monocytes (%) (Auto) 6.2 % Eosinophils (%) (Auto) 0.2 % Basophils (%) (Auto) 0.1 % Neutrophils # (Auto) 9.39 K/uL Lymphocytes # (Auto) 2.03 K/uL Monocytes # (Auto) 0.76 K/uL Eosinophils # (Auto) 0.03 K/uL Basophils # (Auto) 0.01 K/uL RDW Standard Deviation 46.1 fL RDW Coefficient of Variation 14.6 % Immature Granulocyte % (Auto) 0.2 % Immature Granulocyte # (Auto) 0.02 K/uL Sodium Level 144 mmol/L Potassium Level 3.4 mmol/L Chloride Level 110 mmol/L Carbon Dioxide Level 23 mmol/L Anion Gap 11.0 mmol/L Blood Urea Nitrogen 12 mg/dl Creatinine 1.10 mg/dl Est Creatinine Clear Calc Drug Dose 163.0 ml/min Estimated GFR () 106.8 Estimated GFR (Non- 92.2 BUN/Creatinine Ratio 10.5 Random Glucose 100 mg/dl Calcium Level 9.1 mg/dl Chemistry Specimen Hemolysis Assessment and Plan ureterolithiasis -small distal stone but failing spontaneous passage -flomax, IVF, follow - hopefully still will pass but if not set up for cysto tomorrow mild leukocytosis -no other s/s infection -urology has started cipro pending possible stenting -continue to follow clinically mild hypokalemia -replace, recheck ?depression -baseline med list including abilify - continue this ?asthma -tobacco abuse - hopefully can encourage smoke cessation - nicotine patch for now -albuterol prn as at home tobacco abuse -nicotine patch, encourage cessation DVT proph -ambulation
[2016-09-07] MEDS: SODIUM CHLOR 0.45% + 20MEQ KCL 1,000 ML IV SCH ×3 (12:23→22:09)
[2016-09-07 15:30] VITALS: BP 163/80; PULSE 64; TEMP 36.4; O2SAT 94
[2016-09-07 16:30] VITALS: O2SAT 94
[2016-09-07] MEDS: ALBUTEROL HFA 8 GM INHALER INH PRN (19:32)
[2016-09-07 20:34] VITALS: BP 159/76
[2016-09-07] MEDS ORDERED: TAMSULOSIN HCL 0.4 MG CAP PO SCH (21:00)
[2016-09-07] MEDS: ZOLPIDEM TARTRATE 5 MG TAB PO PRN (22:28)
[2016-09-07 23:10] VITALS: BP 171/81; PULSE 63; TEMP 36.5; O2SAT 97
[2016-09-08] VITALS (13 sets, daily range): BP systolic 137–188; BP diastolic 68–101; PULSE 58–96; TEMP 36.4–37; O2SAT 92–99
[2016-09-08] MEDS: SODIUM CHLOR 0.45% + 20MEQ KCL 1,000 ML IV SCH ×3 (03:32→16:20)
[2016-09-08] MEDS ORDERED: CIPROFLOXACIN 400MG / 200ML D5W IV ONE (06:00)
[2016-09-08 06:39] LABS: BASO % 0.1 %; BASO ABS # 0.01 K/uL (0-0.2); COMPLETE YES; EOS % 1.4 %; HEMATOCRIT 42.2 % (42-52); IG% 0.1 %; LYMPH % 26.8 %; LYMPH ABS # 2.23 K/uL (1.2-3.4); MEAN CELL VOLUME 88.5 fL (80-100); MEAN CORPUSCULAR HEMOGLOBIN 28.9 pg (25-34); MEAN CORPUSCULAR HGB CONC 32.7 g/dl (32-36); MEAN PLATELET VOLUME 10.2 fL (7.4-10.4); NEUT % 64.6 %; PLATELET COUNT 197 K/uL (130-400); RED BLOOD COUNT 4.77 M/uL (4.7-6.1); WHITE BLOOD COUNT 8.32 K/uL (4.8-10.8)
[2016-09-08] MEDS ORDERED: LIDOCAINE HCL 2% 2 ML VIAL (20MG/ML) ONE (06:56)
[2016-09-08] MEDS ORDERED: MIDAZOLAM HCL 1 MG/ML 2ML VIAL ONE (06:56)
[2016-09-08] MEDS ORDERED: FENTANYL CITRATE INJ 50 MCG/1 ML 2 ML VIAL ONE ×2 (06:56→07:59)
[2016-09-08] MEDS ORDERED: PROPOFOL IV EMULSION 10 MG/ML 20 ML VIAL IV ONE (06:56)
[2016-09-08] MEDS ORDERED: SUCCINYLCHOLINE CHLORIDE 20 MG/ML 10 ML VIAL IV ONE (06:56)
[2016-09-08] MEDS ORDERED: CONRAY 30% 150ML BOTTLE ONE (07:03)
[2016-09-08 07:06] LABS: BUN/CREATININE RATIO 8.2 (10-20); POTASSIUM 4.1 mmol/L (3.5-5.1)
--- NOTE | 2016-09-08 07:17 | Progress Note ---
Progress Note Date of Service Sep 08, 2016. Progress Note S: no change overnight - still with left flank pain O: 09/08/16 06:09 Red Blood Count 4.77, Mean Corpuscular Volume 88.5, Mean Corpuscular Hemoglobin 28.9, Mean Corpuscular Hemoglobin Concent 32.7, Mean Platelet Volume 10.2, Neutrophils (%) (Auto) 64.6, Lymphocytes (%) (Auto) 26.8, Monocytes (%) (Auto) 7.0, Eosinophils (%) (Auto) 1.4, Basophils (%) (Auto) 0.1, Neutrophils # (Auto) 5.37, Lymphocytes # (Auto) 2.23, Monocytes # (Auto) 0.58, Eosinophils # (Auto) 0.12, Basophils # (Auto) 0.01 09/08/16 06:09 Test 09/08/16 06:09 White Blood Count 8.32 K/uL (4.8-10.8) Red Blood Count 4.77 M/uL (4.7-6.1) Hemoglobin 13.8 g/dL (14.0-18.0) Hematocrit 42.2 % (42-52) Mean Corpuscular Volume 88.5 fL (80-100) Mean Corpuscular Hemoglobin 28.9 pg (25-34) Mean Corpuscular Hemoglobin Concent 32.7 g/dl (32-36) Platelet Count 197 K/uL (130-400) Mean Platelet Volume 10.2 fL (7.4-10.4) Neutrophils (%) (Auto) 64.6 % Lymphocytes (%) (Auto) 26.8 % Monocytes (%) (Auto) 7.0 % Eosinophils (%) (Auto) 1.4 % Basophils (%) (Auto) 0.1 % Neutrophils # (Auto) 5.37 K/uL (1.4-6.5) Lymphocytes # (Auto) 2.23 K/uL (1.2-3.4) Monocytes # (Auto) 0.58 K/uL (0.11-0.59) Eosinophils # (Auto) 0.12 K/uL (0-0.5) Basophils # (Auto) 0.01 K/uL (0-0.2) RDW Standard Deviation 47.7 fL (36.4-46.3) RDW Coefficient of Variation 14.7 % (11.5-14.5) Immature Granulocyte % (Auto) 0.1 % Immature Granulocyte # (Auto) 0.01 K/uL (0.00-0.02) Anion Gap 7.0 mmol/L (3-11) Est Creatinine Clear Calc Drug Dose 179.2 ml/min Estimated GFR () 119.9 Estimated GFR (Non- 103.4 BUN/Creatinine Ratio 8.2 (10-20) Vital Signs Past 12 Hours Date Time Temp Pulse Resp B/P (MAP) Pulse Ox O2 Delivery O2 Flow Rate FiO2 09/08/16 06:21 36.5 70 20 158/80 (106) 97 Room Air 09/08/16 00:37 60 153/73 (99) 09/07/16 23:21 Room Air 09/07/16 23:10 36.5 63 18 171/81 (111) 97 Room Air 09/07/16 20:34 159/76 (103) NAD AAOx3 no resp distress rrr abd soft - no edema A/P: L ureteral stone - discussed options - plan for cysto, left URS, LL, stent
[2016-09-08] MEDS ORDERED: ATROPINE SULFATE 0.1 MG/ML 5ML SYR IV PRN (07:30)
[2016-09-08] MEDS ORDERED: PROMETHAZINE HCL INJ 12.5 MG in SODIUM CHLORIDE 0.9% 50ML 50 ML IV PRN (07:30)
[2016-09-08] MEDS ORDERED: ONDANSETRON INJ 2 MG/ML 2 ML VIAL IV PRN (07:30)
[2016-09-08] MEDS ORDERED: ROCURONIUM BROMIDE 10 MG/ML 5 ML VIAL ONE (07:44)
[2016-09-08] MEDS ORDERED: GLYCOPYRROLATE INJ 0.2 MG/ML VIAL ONE (07:44)
[2016-09-08] MEDS ORDERED: DEXAMETHASONE SOD INJ 4 MG/ML VIAL ONE (07:44)
[2016-09-08] MEDS ORDERED: ONDANSETRON INJ 2 MG/ML 2 ML VIAL ONE (07:44)
[2016-09-08] MEDS ORDERED: NEOSTIGMINE METHYLSULFATE 5 MG/5 ML SYR ONE (07:44)
[2016-09-08] MEDS ORDERED: NURSING VERBAL MED ORDER STA (07:48)
[2016-09-08] MEDS ORDERED: CIPROFLOXACIN / D5W 400 MG IV STA (07:54)
--- NOTE | 2016-09-08 08:18 | [facility] Post Operative Brief Note ---
Immediate Operative Summary Operative Date Sep 08, 2016. Pre-Operative Diagnosis L ureteral stone Post-Operative Diagnosis L ureteral stone Procedure(s) Performed cystoscopy; L RPG; L ureteroscopy (semi-rigid); L ureteral stent placement [id number] Surgeon Laura Cleveland MD Disability Services Coordinator Surgeon(s) none Estimated Blood Loss 2cc Findings tight distal ureter (would not easily accommodate a 10F double lumen catheter nor a flexible ureteroscope. Stone not visualized on fluoro nor RPG. I was able to guide a semi-rigid scope into the ureter and advance it as far as the proximal ureter. I did not, however, visualize a stone in the portion of the ureter I examined. Rather than performing a balloon dilation and attempting to re-pass a flexible scope, I elected to place a stent and conclude the case for today. Specimens none Drains [id number] Anesthesia gen Complication(s) None Disposition Recovery Room / PACU (stable)
[2016-09-08] MEDS ORDERED: PHENAZOPYRIDINE HCL 200 MG TAB PO STA (08:20)
[2016-09-08] MEDS ORDERED: OXYC-57 PO (08:20)
[2016-09-08] MEDS ORDERED: CIPR-255 PO (08:20)
[2016-09-08] MEDS ORDERED: PHEN95TA14 PO (08:20)
[2016-09-08] MEDS ORDERED: NURSING VERBAL MED ORDER ONE ×2 (08:30→10:45)
[2016-09-08] MEDS ORDERED: PHENAZOPYRIDINE HCL 200 MG TAB PO PRN (08:30)
[2016-09-08] MEDS: FENTANYL CITRATE INJ 50 MCG/1 ML 2 ML VIAL IV PRN ×2 (08:50→08:55)
[2016-09-08] MEDS ORDERED: NICOTINE 21 MG/24 HR TDSY TD SCH (09:00)
[2016-09-08] MEDS ORDERED: ARIPIprazole TAB 15 MG TAB PO SCH (09:00)
[2016-09-08] MEDS ORDERED: ALBUTEROL 0.083% NEBU SOLN 3 ML VIAL INH STA (09:01)
--- NOTE | 2016-09-08 09:11 | Anesthesiology Progress Note ---
Anesthesia Post Op Note Date & Time Sep 08, 2016 at 09:11 Vital Signs Pain Intensity: 3 Vital Signs Past 12 Hours Date Time Temp Pulse Resp B/P (MAP) Pulse Ox O2 Delivery O2 Flow Rate FiO2 09/08/16 09:05 36.7 69 12 166/82 96 Nasal Cannula 2 09/08/16 08:56 69 16 95 Mask 12.0 09/08/16 08:55 65 12 160/80 97 Mask 6 09/08/16 08:45 78 12 152/81 98 Mask 10 09/08/16 08:35 63 12 158/86 90 Mask 13 09/08/16 08:25 72 18 153/91 90 Mask 10 09/08/16 08:16 36.5 74 18 125/83 91 Mask 10 09/08/16 06:21 36.5 70 20 158/80 (106) 97 Room Air 09/08/16 00:37 60 153/73 (99) 09/07/16 23:21 Room Air 09/07/16 23:10 36.5 63 18 171/81 (111) 97 Room Air Notes Mental Status: alert / awake / arousable, participated in evaluation Pt Amnestic to Procedure: Yes Nausea / Vomiting: adequately controlled Pain: adequately controlled Airway Patency, RR, SpO2: stable & adequate BP & HR: stable & adequate Hydration State: stable & adequate Anesthetic Complications: no major complications apparent
[2016-09-08] MEDS: HYDROmorphone INJ 0.5 MG/0.5 ML SYR IV PRN (09:40)
[2016-09-08] MEDS ORDERED: OXYCODONE/ACETAMINOPHEN 5-325 TAB PO ONE (10:02)
[2016-09-08] MEDS ORDERED: OXYCODONE/ACETAMINOPHEN 5-325 TAB PO PRN (10:15)
[2016-09-08] MEDS ORDERED: KETOROLAC TROMETHAMINE 30 MG/ML VIAL IV. STA (10:38)
[2016-09-08] MEDS ORDERED: SODIUM CHLORIDE 0.9% 1000ML 1,000 ML IV SCH (10:52)
[2016-09-08] MEDS ORDERED: HYDROmorphone INJ 2 MG/ML SYR/VIAL IV STA (10:52)
[2016-09-08] MEDS ORDERED: NALOXONE HCL 0.4 MG/1 ML VIAL/CARP IV PRN (11:00)
[2016-09-08] MEDS: HYDROmorphone HCL 0.5MG/ML 50 ML CASSETTE IV PRN ×2 (11:35→15:16)
[2016-09-08 13:26] LABS: CALCIUM 8.9 mg/dl (8.5-10.1)
[2016-09-08] MEDS: ALBUTEROL HFA 8 GM INHALER INH PRN (15:25)
[2016-09-08] MEDS ORDERED: ONDA4TAB10 SL (18:14)
--- NOTE | 2016-09-08 18:25 | Discharge Instructions ---
Discharge Instructions Date of Service Sep 08, 2016. Admission Reason for Admission: Hydronephrosis With Obstructing Calculus Discharge Discharge Diagnosis / Problem: kidney stone Discharge Goals Goal(s): Decrease discomfort, Diagnostic testing, Therapeutic intervention Activity Recommendations Activity Limitations: resume your previous activity . Instructions / Follow-Up Instructions / Follow-Up if you have recurrent pain, use the percocet or pyridium. it would be time to come to the hospital again if: a) you have pain that isn't controlled with the percocet and pyridium b) you have nausea/can't eat or drink in spite of taking the zofran c) you have a fever otherwise follow up with Dr Cleveland in the office next week Current Hospital Diet Patient's current hospital diet: Regular Diet Discharge Diet Recommended Diet: Regular Diet (try to make sure you drink at least 70 ounces of fluid for the near future) Procedures Procedures Performed: Cystoscopy; Left retrograde pyelogram; Left ureteroscopy (semi-rigid); Left ureteral stent placement [id number] Pending Studies Studies pending at discharge: no Medical Emergencies . Who to Call and When: Medical Emergencies: If at any time you feel your situation is an emergency, please call 911 immediately. . Non-Emergent Contact Non-Emergency issues call your: Primary Care Provider, Urologist . . "Provider Documentation" section prepared by Tejas Otoole. . VTE Core Measure Inpt VTE Proph given/why not?: SCD's [place] Drug Monitoring Program Search Results: patient reviewed within database, no issues identified
--- NOTE | 2016-09-08 18:30 | Discharge Summary ---
Discharge Summary Date of Service Sep 08, 2016. Discharge Summary Admission Date: Sep 06, 2016 at 19:50 Discharge Date: Sep 08, 2016 Discharge Disposition: Home Principal Diagnosis: ureteral stone Procedures: Post OP - Brief Note (11-15) Immediate Operative Summary Operative Date Sep 08, 2016. Pre-Operative Diagnosis L ureteral stone Post-Operative Diagnosis L ureteral stone Procedure(s) Performed cystoscopy; L RPG; L ureteroscopy (semi-rigid); L ureteral stent placement [id number] Surgeon Laura Cleveland MD Back Grinder Surgeon(s) none Estimated Blood Loss 2cc Findings tight distal ureter (would not easily accommodate a 10F double lumen catheter nor a flexible ureteroscope. Stone not visualized on fluoro nor RPG. I was able to guide a semi-rigid scope into the ureter and advance it as far as the proximal ureter. I did not, however, visualize a stone in the portion of the ureter I examined. Rather than performing a balloon dilation and attempting to re-pass a flexible scope, I elected to place a stent and conclude the case for today. Specimens none Drains [id number] Anesthesia gen Complication(s) None Disposition Recovery Room / PACU (stable) Renal ultrasound RETROPERITONEAL COMPLETE CLINICAL HISTORY: Left flank pain, decreased urine output. Flank pain TECHNIQUE: Ultrasound COMPARISON STUDY: None FINDINGS: Right kidney measures 11.1 cm. Left measures 12.8 cm. Echogenicity is unremarkable. No evidence for hydronephrosis. IMPRESSION: Normal study. No evidence for hydronephrosis. Electronically signed by: Wade Hathaway M.D. 09/06/2016 6:27 PM Dictated Date/Time: 09/06/2016 6:26 PM Last Resulted CBC 09/08/16 06:09 Red Blood Count 4.77, Mean Corpuscular Volume 88.5, Mean Corpuscular Hemoglobin 28.9, Mean Corpuscular Hemoglobin Concent 32.7, Mean Platelet Volume 10.2, Neutrophils (%) (Auto) 64.6, Lymphocytes (%) (Auto) 26.8, Monocytes (%) (Auto) 7.0, Eosinophils (%) (Auto) 1.4, Basophils (%) (Auto) 0.1, Neutrophils # (Auto) 5.37, Lymphocytes # (Auto) 2.23, Monocytes # (Auto) 0.58, Eosinophils # (Auto) 0.12, Basophils # (Auto) 0.01 Last Resulted BMP 09/08/16 06:09 Hospital Course admitting HPI: History of Present Illness Source: patient 25 y/o M Hx obstructive renal calculi and previous ureteral stent placement. Pt presented with back/flank pain on 08/[address] abdomen which showed a punctate stone at the left ureteropelvic junction. It was thought that this would pass and he was discharged to follow-up with his urologist. His symptoms have persisted, worsened over the course of the day and were accompanied by nausea and vomiting. He denies fevers or rigors. was admitted, trial of spontaneous passage but ongoing pain persisted, taken to OR - stented although stone not visualized, ureteral tight. initially severe pain post op but quickly improved and now only requiring occasional percocet for pain control. stable for home ureterolithiasis -small distal stone but ongoing severe sx -s/p stenting, home on pyridium, percocet, cipro per urology, added prn zofran mild leukocytosis -no other s/s infection -culture negative, short course cipro per urology related to intervention mild hypokalemia -replaced ?depression -continue home meds ?asthma -tobacco abuse - hopefully can encourage smoke cessation - nicotine patch used while in hospital -albuterol prn as at home tobacco abuse -nicotine patch used, encourage cessation DVT proph -ambulation stable for home Total Time Spent: Greater than 30 minutes This includes examination of the patient, discharge planning, medication reconciliation, and communication with other providers. Discharge Instructions Please refer to the electronic Patient Visit Report (Discharge Instructions) for additional information. Additional Copies To Juaquni Souza; Tigre Cleveland M.D.
--- NOTE | 2016-09-10 09:21 | [facility] Operative Report ---
Operative Report Operative Date Sep 10, 2016. Pre-Operative Diagnosis Left ureteral stone Post-Operative Diagnosis Left ureteral stone Procedure(s) Performed Cystoscopy; Left retrograde pyelogram; left ureteroscopy; left ureteral stent placement. Surgeon Tigre Cleveland MD Pharmaceutical Laboratory Technician Surgeon(s) None Estimated Blood Loss 2cc Findings As per description of procedure. Specimens None per surgeon Drains [id number] Anesthesia gen Complication(s) None Disposition Recovery Room / PACU (stable) Description of Procedure Pt identified in the peroperative holding area. Appropriate informed consents were reviewed and completed. He was transported to the operative suite, received appropriate antibiotics and general anesthesia. I started by passing a 22 swedish cystoscope. There was no evidence of urethral stricture. Bladder was fully inspected, no evidence of mucosal abnormalities. Ureteral orifices were in orthotopic position. Fluoroscopic examination of the left side of the abdomen was completed, no stones were clearly visualized. I then cannulated the left ureteral orifice with a 10french double lumen catheter and a sensor wire. The wire advanced easily, however, the ureter did not easily accomodate the 10F double lumen beyond the intramural ureter. A retrograde was performed. There was no significant hydronephrosis and no clear filling defect. A second wire was passed without difficulty. I then withdrew the 10french double lumen. I attempted to pass the flexible ureteroscope. Unfortunately, this was not successful. I switched to a semirigid scope and was able to easily guide it into the distal ureter. The ureter was healthy appearing, without stricture or stone. I was able to advance this scope without difficulty. I guided it over the vessels and into the proximal ureter. Despite reaching the maximal extent of my reach with this scope, I had not visualized a stone. I injected contrast through the scope which opacified the upper pole very well, but not the lower pole. I did not see a bifurcation of the ureter. Given my inability to see the stone, I elected to place a stent at that time rather than traumatize the ureter with a balloon dilation and repeat attempt to pass a flexible scope. A [id number] cm double-j stent was placed with a good curl in the upper pole and a good curl in the bladder. The bladder was decompressed and the case concluded. He was extubated and taken to the PACU in stable condition. There were no complications. I attest to the content of the Intraoperative Record and any orders documented therein. Any exceptions are noted below.
== END 2016-09-08 19:35 | disposition home or self-care (01) | DRG 694 ==
LOC: C.EDB 17:09 → C.MSN 19:50 → ENRESERV 20:12
PROVIDERS: ADMIT Internal Medicine; ATTEND Family Medicine
PROC: 0T778DZ Dilation of Left Ureter with Intraluminal Device, Via Natural or Artificial Opening Endoscopic (ICD-10-PCS; principal; 2016-09-08 07:15)
PROC: BT1F1ZZ Fluoroscopy of Left Kidney, Ureter and Bladder using Low Osmolar Contrast (ICD-10-PCS; principal; 2016-09-08 07:15)
DX: N20.1 Calculus of ureter (principal); Z68.42 Body mass index [BMI] 45.0-49.9, adult; R93.9 Diagnostic imaging inconclusive due to excess body fat of patient; D72.829 Elevated white blood cell count, unspecified; E87.6 Hypokalemia; J45.909 Unspecified asthma, uncomplicated; F31.9 Bipolar disorder, unspecified; F41.9 Anxiety disorder, unspecified; F17.210 Nicotine dependence, cigarettes, uncomplicated; E66.9 Obesity, unspecified; Z79.899 Other long term (current) drug therapy

== ENCOUNTER → 2016-09-16 | Outpatient (CLI) | payer BC ==
[~2016-09-16] MED LIST changes: +ABL/15 PO; +CIPR-255 PO; +ONDA4TAB10 SL; +PHEN95TA14 PO; +TAMS0.4C38 PO; +VNTHFA/IN INH
--- NOTE | 2016-09-16 08:34 | DIAGNOSTIC IMAGING REPORT ---
ABDOMEN AND PELVIS CT WITHOUT CONTRAST CT DOSE: 1749.30 mGy.cm HISTORY: Nephrocalcinosis URETERIC STONE TECHNIQUE: Multiaxial CT images of the abdomen and pelvis were performed without contrast. COMPARISON STUDY: 07/30/2016 FINDINGS: Interval placement of a left ureteral stent. Stent appears to be positioned appropriately. Previously described left ureteral calculus is not identified and potentially has passed. Mild fullness of left renal collecting system is again noted although there has been a slight decrease in fullness of the renal pelvis. Right kidney remains negative for an obstructing urinary tract calculus. Liver spleen and pancreas are unremarkable. Bowel pattern remains nonobstructive. The appendix is normal. Bladder is midline with no contained calcifications. IMPRESSION: 1. Placement of a left ureteral stent in good position. 2. Slight fullness left renal collecting system mildly improved from the prior exam. 3. No evidence of an obstructing urinary tract calculus on the current study Electronically signed by: Wade Hathaway M.D. 09/16/2016 8:33 AM Dictated Date/Time: 09/16/2016 8:18 AM
== END | disposition home or self-care (01) ==
LOC: C.CTS 08:04
PROVIDERS: ATTEND Urology
DX: N20.1 Calculus of ureter (principal)

== ENCOUNTER → 2017-05-24 | Outpatient (CLI) | payer BC ==
[~2017-05-24] MED LIST changes: -ONDA4TAB10 SL
--- NOTE | 2017-05-24 13:33 | DIAGNOSTIC IMAGING REPORT ---
KUB CLINICAL HISTORY: N20.1 Ureteric stone nephrocalcinosis COMPARISON STUDY: 08/22/2015 CT abdomen and pelvis 09/16/2016 FINDINGS: The soft tissues, psoas shadows, renal outlines and intestinal gas pattern appear normal. There is no evidence for bowel obstruction. No abnormal abdominal calcifications are seen. IMPRESSION: Normal study. The above report was generated using voice recognition software. It may contain grammatical, syntax or spelling errors. Electronically signed by: Wade Hathaway M.D. 05/24/2017 1:31 PM Dictated Date/Time: 05/24/2017 1:30 PM
== END | disposition home or self-care (01) ==
LOC: C.RAD 12:32
PROVIDERS: ATTEND Urology
DX: N20.1 Calculus of ureter (principal)